=== PATIENT | female | born 1970 | race Two or more races ===

== ENCOUNTER 2021-04-25 04:08 | Emergency (ER) | payer MEDICAID ==
[2021-04-25] MEDS ORDERED: ACETAMINOPHEN 500 MG TABLET PO ONE (04:45)
[2021-04-25] MEDS ORDERED: PERTUSS(ACELL),DIPH,TET VAC/PF 0.5 ML SYRINGE IM. ONE (04:45)
[2021-04-25] MEDS ORDERED: AMOX TR/POT CLAV 875 MG/125 MG TABLET PO ONE (04:45)
[2021-04-25] MEDS ORDERED: SODIUM CHLORIDE 0.9% 250 ML IRRIG SOLUTION BOTTLE IRRIG ONE (04:45)
== END 2021-04-25 05:32 | disposition home or self-care (01) ==
LOC: EMS 04:08
DX: S61.452A Open bite of left hand, initial encounter (principal); S40.811A Abrasion of right upper arm, initial encounter; W55.03XA Scratched by cat, initial encounter; Y93.89 Activity, other specified; Y92.89 Other specified places as the place of occurrence of the external cause; Y99.8 Other external cause status
CPT/HCPCS: 90471; 90715; 99283